=== PATIENT | female | born 1995 | race Native Hawaiian/Other Pacific Islander ===

== ENCOUNTER 2019-05-18 18:19 | Emergency (ER) | payer BC ==
[~2019-05-18] VITALS: Ht 165.1 cm; Wt 72.6 kg
[2019-05-18 18:24] VITALS: BP 114/69; TEMP 97.7
[2019-05-18 18:59] LABS: PLATELET COUNT 114 K/uL (152-353)
[2019-05-18 19:11] LABS: POTASSIUM 3.9 mmol/L (3.6-5.2)
== END 2019-05-18 20:10 | disposition home or self-care (01) ==
LOC: ED 18:19
PROVIDERS: Emergency Medicine
DX: K52.9 Noninfective gastroenteritis and colitis, unspecified (principal)
CPT/HCPCS: 36415; 80053; 85027; 87502; 96360; 96375; 99284; J2405

== ENCOUNTER 2020-06-23 11:44 | Outpatient (CLI) | payer BC | END 2020-06-23 20:58 | disposition home or self-care (01) | LOC: RAD 11:44 | PROVIDERS: ATTEND Nurse Practitioner Family | DX: R60.0 Localized edema (principal) ==